=== PATIENT | female | born 1975 | race American Indian/Alaskan Native ===

== ENCOUNTER 2016-09-20 18:57 | Emergency (ER) | payer BC, OTHER ==
[2016-09-20] MEDS ORDERED: MOTRIN PO ONE (21:28)
[2016-09-20] MEDS ORDERED: PROVENTIL IH ONE (21:28)
--- NOTE | 2016-09-20 21:32 | Emergency Department Report ---
ED Fever HPI - General Chief Complaint: Fever Stated Complaint: CHEST PAIN/MIGRAINE/DB/FEVER Time Seen by Provider: 09/20/16 21:27 - History of Present Illness Initial Comments: 41-year-old female comes in for complaint of productive cough fever chills body aches migraine 2 days. She also reports that she's had nausea and vomiting yesterday. She has O inhaler and nebulizer for albuterol at home which did not help with her relief. She has past medical history of asthma and migraines ED Review of Systems ROS: Stated complaint: CHEST PAIN/MIGRAINE/DB/FEVER Other details as noted in HPI Constitutional: chills, fever Eyes: denies: eye pain, eye discharge ENT: denies: ear pain, throat pain Respiratory: cough, wheezing Cardiovascular: chest pain (chest tightness) Gastrointestinal: nausea (yesterday), vomiting (yesterday) Genitourinary: denies: dysuria, frequency, hematuria ED Past Medical Hx - Past Medical History Hx Hypertension: Yes Hx Headaches / Migraines: Yes Hx Asthma: Yes - Surgical History Hx Cholecystectomy: Yes Additional Surgical History: Tubal ligation. OVARIAN TORSION. UTERINE ABLATION - Social History Smoking Status: Never Smoker - Medications Home Medications: Home Medications Medication Instructions Recorded Confirmed Last Taken Type ALBUTEROL Inhaler [ProAir HFA 2 puff IH QID PRN #1 inhalation 06/24/15 Unknown Rx Inhaler] Cetirizine HCl [Allergy Relief] 10 mg PO DAILY #14 tablet 06/24/15 Unknown Rx Fluticasone [Flonase] 1 spray NS QDAY #1 bottle 06/24/15 Unknown Rx Acetaminophen/Codeine 1 tab PO Q6H PRN #14 tab 10/12/15 Unknown Rx [Acetaminophen-Codeine #3 TAB] Albuterol Sulfate [Ventolin HFA] 2 puff IH Q4H PRN #1 hfa.aer.ad 06/29/16 Unknown Rx Cyclobenzaprine [Flexeril] 10 mg PO BID PRN #10 tablet 06/29/16 Unknown Rx Ibuprofen [Motrin] 600 mg PO Q8H PRN #15 tablet 06/29/16 Unknown Rx ALBUTEROL NEB's [Proventil 0.083% 2.5 mg IH TID PRN #1 box 09/21/16 Unknown Rx NEBS] Azithromycin [Zithromax] 250 mg PO DAILY #6 tablet 09/21/16 Unknown Rx ED Physical Exam - General Limitations: No Limitations General appearance: alert, in no apparent distress - Head Head exam: Present: atraumatic, normocephalic - Eye Eye exam: Present: PERRL, EOMI - ENT ENT exam: Present: normal exam, mucous membranes moist, TM's normal bilaterally - Neck Neck exam: Present: normal inspection. Absent: tenderness, lymphadenopathy - Respiratory Respiratory exam: Present: normal lung sounds bilaterally. Absent: respiratory distress, wheezes - Cardiovascular Cardiovascular Exam: Present: normal rhythm, tachycardia, normal heart sounds - GI/Abdominal GI/Abdominal exam: Present: soft. Absent: distended, tenderness ED Course Vital Signs 09/20/16 09/20/16 09/20/16 19:06 21:33 22:28 Temperature 100.4 F H 102.6 F H Pulse Rate 96 H 95 H Pulse Rate [ 101 H Anterior Bilateral Throughout] Respiratory 22 18 Rate Respiratory 20 Rate [Anterior Bilateral Throughout] Blood Pressure 136/76 Blood Pressure 138/84 [Right] O2 Sat by Pulse 96 97 Oximetry 09/20/16 09/20/16 09/20/16 22:44 22:47 23:08 Temperature Pulse Rate Pulse Rate [ 104 H 104 H 103 H Anterior Bilateral Throughout] Respiratory Rate Respiratory 20 20 19 Rate [Anterior Bilateral Throughout] Blood Pressure Blood Pressure [Right] O2 Sat by Pulse Oximetry - Reevaluation(s) Reevaluation #1: 09/21/16 00:36 Provider patient is moving air much better. ED Medical Decision Making - Medical Decision Making Been evaluated by this provider in fast track. An influenza rapid albuterol neb and ibuprofen for fever and bodyaches. Also ordered CXR. Verbalized understanding. Influenza cames back negative. Awaiting CXR. X-ray shows no consolidation is no infiltrate normal. Critical care attestation.: If time is entered above; I have spent that time in minutes in the direct care of this critically ill patient, excluding procedure time. ED Disposition Clinical Impression: Bronchitis Disposition: DISCHARGED TO HOME OR SELFCARE Is pt being admited?: No Does the pt Need Aspirin: No Condition: Stable Instructions: Chronic Bronchitis (ED) Additional Instructions: Antibiotics as prescribed follow up with her primary care provider within 3-5 days. Prescriptions: ALBUTEROL NEB's [Proventil 0.083% NEBS] 2.5 mg IH TID PRN #1 box PRN Reason: Wheezing Azithromycin [Zithromax] 250 mg PO DAILY #6 tablet Referrals: PRIMARY CARE, [Primary Care Provider] - 3-5 Days DANNIELLE PORTER MD [Staff Physician] - 3-5 Days Forms: Work/School Release Form(ED)
[2016-09-20 21:35] VITALS: BP 138/84
[2016-09-20] MEDS ORDERED: DUONEB 0.5 MG-3 MG/3 ML SOLN IH ONE (22:44)
--- NOTE | 2016-09-20 23:41 | XRay Report ---
FINAL REPORT EXAM: XR CHEST ROUTINE 2V HISTORY: decreased breath sounds lll and fever TECHNIQUE: Frontal and lateral chest x-ray. PRIORS: None. FINDINGS: Cardiac and mediastinal silhouette within normal limits. Possible prominent lymph node projects over right infrahilar region. Lungs are normally expanded. No focal consolidation, pleural effusions or apparent pneumothorax. IMPRESSION: 1. No acute consolidation.
== END 2016-09-21 01:10 | disposition home or self-care (01) ==
LOC: ED 18:57
DX: J40 Bronchitis, not specified as acute or chronic (principal); I10 Essential (primary) hypertension; G43.909 Migraine, unspecified, not intractable, without status migrainosus; J45.909 Unspecified asthma, uncomplicated
CPT/HCPCS: 71020; 87400; 94640

== ENCOUNTER 2020-12-13 17:20 | Emergency (ER) | payer OTHER, BC ==
[2020-12-13 20:11] VITALS: BP 147/87
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
== END 2020-12-13 21:00 | disposition home or self-care (01) ==
LOC: ED 17:20
DX: S16.1XXA Strain of muscle, fascia and tendon at neck level, initial encounter (principal); G43.909 Migraine, unspecified, not intractable, without status migrainosus; I10 Essential (primary) hypertension; J45.909 Unspecified asthma, uncomplicated; Z91.013 Allergy to seafood; Z79.899 Other long term (current) drug therapy; V49.49XA Driver injured in collision with other motor vehicles in traffic accident, initial encounter; Y93.89 Activity, other specified; Y92.488 Other paved roadways as the place of occurrence of the external cause; Y99.8 Other external cause status
CPT/HCPCS: 99282